=== PATIENT | male | born 1975 | race Caucasian/White ===

== ENCOUNTER 2020-09-30 18:11 | Emergency (ER) | payer MEDICAID ==
[~2020-09-30] VITALS: Ht 162.6 cm; Wt 72.6 kg
[2020-09-30 18:27] VITALS: BP 156/104
--- NOTE | 2020-09-30 18:44 | NUR ---
45 Y/O MALE STATES THE LEFT SIDE OF HIS FACE HAS BEEN PAINFUL AND NUMB FOR THE LAST 3 DAYS. 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 AAOX4. FACIAL DROOP OBSERVED WHEN PT ASKED TO SMILE, UNABLE TO CLOSE L EYE. PT DENIES TRAUMA/N/V/D. PT STATES PAIN IS IN BACK OF L SIDE OF HEAD/NECK/ SHOULD AND ABD. PT STATES THE PAIN IS PULSING AND FACE FEELS LIKE IT IS FALLING ASLEEP. EVEN AND UNLABORED RESPIRATIONS. PT TOOK IBUPROFEN WITH NO RELIEF. Hx DM, HTN NKA
--- NOTE | 2020-09-30 18:56 | NUR ---
DR ROJAS AT BEDSIDE FOR EVALUATION
[2020-09-30] MEDS ORDERED: KETOROLAC 30 MG/ML VIAL IM ONE (19:25)
--- NOTE | 2020-09-30 19:35 | NUR ---
REPORT GIVEN TO ANGELA GAINES, TRANSFER OF CARE AT THIS TIME
--- NOTE | 2020-09-30 19:35 | NUR ---
PT WAS FOUND AWAKE IN SEMI-HOYOS'S POSITION IN BED. PT DENIES MEDICAL COMPLAINTS. PT HAS VISIBLE EQUAL RISE AND FALL UPON RESPIRATION. BED LOCKED IN LOWEST POSITION.
--- NOTE | 2020-09-30 19:35 | NUR ---
RECEIVED TRANSFER OF CARE REPORT FROM MARITZA GAINES FOR CONTINUATION OF CARE.
[2020-09-30 19:53] VITALS: BP 156/104
--- NOTE | 2020-09-30 19:53 | NUR ---
Patient discharged with v/s stable. Written and verbal after care instructions given and explained. Patient alert, oriented and verbalized understanding of instructions. Ambulatory with steady gait. All questions addressed prior to discharge. ID band removed. Patient advised to follow up with PMD. Rx of CIPRO, PREDNISONE, COLACE, AND NAPROSYN given. Patient educated on indication of medication including possible reaction and side effects. Opportunity to ask questions provided and answered.
[2020-09-30] MEDS ORDERED: LIDOCAINE/EPI 1% 1:100000 20 ML VIAL INJ ONE (21:30)
== END 2020-09-30 19:53 | disposition home or self-care (01) ==
LOC: MED 18:11
DX: G51.0 Bell's palsy (principal); M54.2 Cervicalgia; R10.32 Left lower quadrant pain; E11.9 Type 2 diabetes mellitus without complications; I10 Essential (primary) hypertension
CPT/HCPCS: 96372; 99283; J1885

== ENCOUNTER 2022-04-07 15:31 | Emergency (ER) | payer MEDICAID ==
[~2022-04-07] VITALS: Ht 162.6 cm; Wt 74.4 kg
[2022-04-07 16:41] VITALS: BP 158/92
[2022-04-07] MEDS ORDERED: ACETAMINOPHEN EXTRA STRENGTH 500 MG TAB ONE (16:49)
[2022-04-07] MEDS ORDERED: ACETAMINOPHEN EXTRA STRENGTH 500 MG TAB PO ONE (16:50)
--- NOTE | 2022-04-07 16:50 | NUR ---
DIEGO AND FLU SWABS COLLECTED AND WALKED TO LAB
--- NOTE | 2022-04-07 17:30 | NUR ---
46/M PRESENTS TO ED WITH C/O FEVER, HEADACHE, LOWER ABD PAIN AND DYSURIA, PATIENT ALSO STATING DIFFICULTY URINATING. STATES SYMPTOMS STARTED TODAY, REPORTS HX OF DIVERTICULITIS AND STATES PAIN FEELS SIMILAR. REPORTS LLQ PAIN, 9/10 WITHOUT RADIATION. DENIES N/V/D, HEMATURIA.
[2022-04-07] MEDS ORDERED: KETOROLAC 60 MG/2 ML VIAL IM ONE ×3 (18:45→19:10)
[2022-04-07] MEDS ORDERED: CIPR500T4 PO (18:59)
[2022-04-07] MEDS ORDERED: IBUP-2213 PO (18:59)
[2022-04-07] MEDS ORDERED: METR-435 PO (18:59)
[2022-04-07 19:23] VITALS: BP 150/85
--- NOTE | 2022-04-07 19:23 | NUR ---
Patient discharged with v/s stable. Written and verbal after care instructions ABOUT DIVERTICULITIS given and explained. Patient alert, oriented and verbalized understanding of instructions. Ambulatory with steady gait. All questions addressed prior to discharge. ID band removed. Patient advised to follow up with PMD. Rx of CIPRO, IBUPROFEN AND METRONIDAZOLE given. Patient educated on indication of medication including possible reaction and side effects. Opportunity to ask questions provided and answered.
== END 2022-04-07 19:23 | disposition home or self-care (01) ==
LOC: MED 15:31
DX: R10.32 Left lower quadrant pain (principal); R51.9 Headache, unspecified; R50.9 Fever, unspecified; E11.9 Type 2 diabetes mellitus without complications; I10 Essential (primary) hypertension
CPT/HCPCS: 81002; 96372; 99283; J1885

== ENCOUNTER 2022-09-02 00:25 | Inpatient (IN) | payer MEDICAID ==
[~2022-09-02] VITALS: Ht 154.9 cm; Wt 77.1 kg
[~2022-09-02 00:25] MED LIST: CIPR500T4 PO; IBUP-2213 PO; METR-435 PO
[2022-09-02 00:30] VITALS: BP 157/98
--- NOTE | 2022-09-02 00:37 | NUR ---
pt to bed #4
--- NOTE | 2022-09-02 00:52 | NUR ---
Dr. Tello examining patient.
[2022-09-02] MEDS ORDERED: NITROGLYCERIN 0.4 MG TAB SL ONE (01:00)
[2022-09-02 01:10] LABS: BASOPHILS # (AUTO) 0.1 K/uL (0.00-0.22); EOSINOPHILS # (AUTO) 0.3 K/uL (0-0.4); HEMATOCRIT 41.7 % (36-52); HEMOGLOBIN 13.9 g/dL (12.0-18.0); LYMPHOCYTES # (AUTO) 3.2 K/uL (2.0-11.5); LYMPHOCYTES % (AUTO) 36.9 % (20.5-51.1); MEAN CORPUSCULAR HEMOGLOBIN 27 pg (27-31); MEAN CORPUSCULAR HGB CONC 33 g/dL (33-37); MEAN CORPUSCULAR VOLUME 81.4 fL (80-94); MONOCYTES # (AUTO) 0.6 K/uL (0.8-1.0); MONOCYTES % (AUTO) 6.7 % (1.7-9.3); NEUTROPHILS # (AUTO) 4.5 K/uL (1.8-7.7); NEUTROPHILS % (AUTO) 52.4 % (42.2-75.2); PLATELET COUNT (AUTO) 260 K/uL (140-450); RED BLOOD CELL COUNT(AUTO) 5.12 MIL/uL (4.20-6.10); RED CELL DISTRIBUTION WIDTH 13.8 % (11.6-13.7); WHITE BLOOD COUNT (AUTO) 8.6 K/uL (4.8-10.8)
--- NOTE | 2022-09-02 01:13 | NUR ---
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 NITRO GIVEN WILL REASSESS PT PAIN PER PROTCOL
[2022-09-02 01:31] LABS: ALBUMIN 4.4 g/dL (3.4-5.0); ANION GAP 13.5 (8-16); ASPARTATE AMINOTRANSFERASE 29 U/L (15-37); CHLORIDE 102 mmol/L (98-107); CREATININE 0.8 mg/dL (0.6-1.3); GFR ARICAN-AMERICAN 133 mL/min (>90); GLUCOSE 168 mg/dL (74-106); POTASSIUM 3.5 mmol/L (3.5-5.1); SODIUM SERUM 139 mmol/L (136-145); TOTAL BILIRUBIN 0.3 mg/dL (0.0-1.0); UREA NITROGEN, BLOOD 22 mg/dL (7-18)
--- NOTE | 2022-09-02 01:36 | NUR ---
47 Y/O M presents with sharp pressure chest pain x3 days with 9/10 pain. pt stated he cant sleep due to the pain. pt denies any nvd, skin is intact and pt is a&ox4. pmh-pt denies nka
--- NOTE | 2022-09-02 01:52 | NUR ---
Dr. Tello at bedside
[2022-09-02] MEDS ORDERED: ASPIRIN 81 MG TAB.CHEW PO ONE ×2 (01:55)
--- NOTE | 2022-09-02 02:00 | NUR ---
vitals reassessed and 2nd nitro administered, pt tolerated well.
[2022-09-02] MEDS ORDERED: ONDANSETRON 4 MG/2 ML VIAL IVP ONE (02:05)
[2022-09-02] MEDS ORDERED: MORPHINE SULFATE 2 MG/ML SYR IVP PRN ×2 (02:05→07:40)
--- NOTE | 2022-09-02 02:09 | NUR ---
TELEPHONE ORDERS RECIEVED FROM DR CENTENO
--- NOTE | 2022-09-02 02:10 | NUR ---
PT TO BE ADMITED TO TELE
[2022-09-02] MEDS ORDERED: ASPIRIN 81 MG TAB.CHEW ONE (02:17)
[2022-09-02] MEDS ORDERED: PRED20TA5 PO (02:29)
[2022-09-02] MEDS ORDERED: ASPI-1822 PO (02:29)
[2022-09-02] MEDS ORDERED: METF-1139 PO (02:29)
[2022-09-02] MEDS ORDERED: LISI-487 PO (02:29)
[2022-09-02] MEDS ORDERED: ATOR10TA PO (02:29)
--- NOTE | 2022-09-02 02:29 | NUR ---
PT BELONGINGS AND MED RECONCILE COMPLETED. COVID SWAB COLLECTED AND SENT TO LAB 20G IV CATH PLACED R AC
--- NOTE | 2022-09-02 04:22 | NUR ---
PT RESTING IN BED WITH HOB ELEVATED. 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 RESP EVEN AND UNLABORED. PT DENIES SOB CP AT 2/10 LEVEL. BED ASSIG PENDING FOR TELE
--- NOTE | 2022-09-02 05:10 | NUR ---
SECOND TROP COLLECTED AND SENT TO LAB
--- NOTE | 2022-09-02 07:21 | NUR ---
Received report from BECKIE Fink. Assumed care at this time.
[2022-09-02] MEDS ORDERED: ZOLPIDEM 10 MG TAB PO PRN (07:40)
[2022-09-02] MEDS ORDERED: POTASSIUM CHLORIDE 10 MEQ TABER PO PRN (07:40)
[2022-09-02] MEDS ORDERED: MAG SULF 2000 MG/WATER PREMIX 50 ML IV PRN (07:40)
[2022-09-02] MEDS ORDERED: DOCUSATE SODIUM 100 MG GELCAP PO PRN (07:40)
[2022-09-02] MEDS ORDERED: ACETAMINOPHEN 325 MG TAB PO PRN (07:40)
[2022-09-02] MEDS ORDERED: ONDANSETRON 4 MG/2 ML VIAL IVP PRN (07:40)
[2022-09-02] MEDS ORDERED: LORazepam 2 MG/ML VIAL IVP PRN (07:40)
--- NOTE | 2022-09-02 07:40 | NUR ---
Patient will be admitted to care of Dr. Sy. Admited to TELE. Will go to room 122a. Belongings list completed. Report to EDER Acosta.
[2022-09-02 08:00] VITALS: BP 121/86
--- NOTE | 2022-09-02 08:03 | NUR ---
RECEIVE REPORT FROM ER NURSE THAT PATIENT IS COME FROM HOME W/ COMPLAIN OF CHEST PAIN. PATIENT IS DIAGNOSIS WITH CHEST W/ HX OF HTN, DM, NKA FULL CODE, AMBULATORY ON TEL. MONITOR; ALERT X 4, AMBULATORY, CONTINENT, ON CCHO DIET, ROOM AIR, PIV AT RAC 20G SALINE LOCK WITH NO SKIN ISSUE. VITAL WITHIN PATIENT'S BASELINE (T-P-R:96.4-74-18, BP:121/86, O2 SAT: 97% IN ROOM AIR). WILL CONTINUE TO MONITOR
--- NOTE | 2022-09-02 09:04 | NUR ---
PATIENT HAS BEEN SCREENED AND CATEGORIZED MODERATE NUTRITION RISK. PATIENT WILL BE SEEN WITHIN 3-5 DAYS OF ADMISSION. REVIEWED BY CHELSY SEYMOUR RD
[2022-09-02] MEDS: lisinopriL 20 MG TAB PO SCH (10:44)
[2022-09-02] MEDS: ASPIRIN 81 MG TAB.CHEW PO SCH (10:45)
[2022-09-02] MEDS: ATORVASTATIN 20 MG TAB PO SCH (10:47)
[2022-09-02 12:00] VITALS: BP 131/83
[2022-09-02 16:00] VITALS: BP 127/88
--- NOTE | 2022-09-02 19:24 | NUR ---
ENDORSE PATIENT IN STABLE CONDITION TO PM SHIFT NURSE. PIV AT R.AC 20G SALINE LOCK. PATIENT TOLERATE DIET WILL NO CHEST PAIN DURING DAY SHIFT AFTER ADMIT
--- NOTE | 2022-09-02 19:25 | NUR ---
RECEIVED PATIENT IN BED, AWAKE, ALERT AND ORIENTED X 4. DENIES CHEST PAIN. DENIES SHORTNESS OF BREATH. SKIN WARM AND DRY TO TOUCH. BED IN THE LOWEST AND LOCKED POSITION FOR SAFETY, CALL LIGHT IN REACH.
[2022-09-02 20:00] VITALS: BP 123/82
[2022-09-03] VITALS: BP 116/83
[2022-09-03 04:00] VITALS: BP 121/84
[2022-09-03 05:34] LABS: BASOPHILS % (AUTO) 0.3 % (0.0-2.0); EOSINOPHILS # (AUTO) 0.2 K/uL (0-0.4); EOSINOPHILS % (AUTO) 1.6 % (0.0-4.0); HEMATOCRIT 45.4 % (36-52); LYMPHOCYTES # (AUTO) 3.7 K/uL (2.0-11.5); LYMPHOCYTES % (AUTO) 37.4 % (20.5-51.1); MEAN CORPUSCULAR HEMOGLOBIN 27 pg (27-31); MEAN CORPUSCULAR HGB CONC 33 g/dL (33-37); MEAN CORPUSCULAR VOLUME 82.3 fL (80-94); MONOCYTES # (AUTO) 0.6 K/uL (0.8-1.0); MONOCYTES % (AUTO) 6.3 % (1.7-9.3); NEUTROPHILS # (AUTO) 5.4 K/uL (1.8-7.7); NEUTROPHILS % (AUTO) 54.4 % (42.2-75.2); PLATELET COUNT (AUTO) 296 K/uL (140-450); RED BLOOD CELL COUNT(AUTO) 5.52 MIL/uL (4.20-6.10); RED CELL DISTRIBUTION WIDTH 13.9 % (11.6-13.7)
[2022-09-03 05:57] LABS: ANION GAP 10.8 (8-16); CARBON DIOXIDE 31.7 mmol/L (21-32); CREATININE 0.9 mg/dL (0.6-1.3); POTASSIUM 3.5 mmol/L (3.5-5.1)
--- NOTE | 2022-09-03 06:37 | NUR ---
PATIENT IS ASLEEP. ALL NEEDS ATTENDED TO. NO CHEST PAIN DURING THE SHIFT. SAFETY PRECAUTIONS IN PLACE, CALL LIGHT IN REACH, CALL LIGHT REMAINS WITHIN REACH.
--- NOTE | 2022-09-03 07:30 | NUR ---
RECIEVED PATIENT FROM IMAGING TECHNOLOGIST NURSE.PATIENT IS STABLE AND VERBALLY ACTIVE.ALL SAFETY MEASURES IN PLACE.WILL CONTINUE TO MONITOR
[2022-09-03 08:00] VITALS: BP 130/92
[2022-09-03] MEDS: ASPIRIN 81 MG TAB.CHEW PO SCH (09:53)
[2022-09-03] MEDS: lisinopriL 20 MG TAB PO SCH (09:53)
[2022-09-03] MEDS: ATORVASTATIN 20 MG TAB PO SCH (09:54)
[2022-09-03 12:00] VITALS: BP 135/82
[2022-09-03 12:28] VITALS: BP 135/82
--- NOTE | 2022-09-03 14:45 | NUR ---
DISCHARGE PATIENT HOME IN STABLE CONDITION PER PCP ORDER. DISCHARGE INSTRUCTION GIVE, DISCHARGE CONSENT SIGNED. IV ACCESS, TEL. MONITOR, & WRIST BAND REMOVED PRIOR WHEEL PATIENT OUT THE FACILITY
== END 2022-09-03 13:25 | disposition home or self-care (01) | DRG 203 ==
LOC: MED 00:25 → MTU 02:14
PROVIDERS: ADMIT Family Medicine; ATTEND Family Medicine
DX: R07.89 Other chest pain (principal); N17.0 Acute kidney failure with tubular necrosis; E11.65 Type 2 diabetes mellitus with hyperglycemia; I10 Essential (primary) hypertension; K57.90 Diverticulosis of intestine, part unspecified, without perforation or abscess without bleeding; Z20.822 Contact with and (suspected) exposure to COVID-19; Z79.82 Long term (current) use of aspirin; Z79.899 Other long term (current) drug therapy
CPT/HCPCS: 36415; 71045; 80048; 80053; 84484; 85025; 85379; 87081; 93005; 99285; Q0092